=== PATIENT | male | born 1985 | race Caucasian/White ===

== ENCOUNTER 2019-12-17 19:35 | Emergency (ER) | payer SELFPAY ==
[~2019-12-17] VITALS: Ht 175.2 cm; Wt 72.6 kg
[2019-12-17] MEDS ORDERED: JOCK ITCH RELIE14 GM T (20:19)
[2019-12-17] MEDS ORDERED: ALBENZA200 M1 PO (20:19)
[2019-12-17] MEDS ORDERED: VISTARIL25 MG PO (20:19)
== END 2019-12-17 20:44 | disposition home or self-care (01) ==
LOC: ED 19:35
DX: B80 Enterobiasis (principal); B35.6 Tinea cruris